=== PATIENT | male | born 1950 | race American Indian/Alaskan Native ===

== ENCOUNTER 2019-05-12 13:34 | Day surgery (SDC) | payer OTHER ==
--- NOTE | 2019-05-12 13:20 | Anesthesia Day of Surgery ---
Anesthesia Day of Surgery - Day of Surgery Patient Examined: Yes Patient H&P Reviewed: Yes Patient is NPO: Yes
--- NOTE | 2019-05-12 13:20 | Anesthesia Consultation ---
Anesthesia Consult and Med Hx Date of service: 05/12/19 - Airway Anesthetic Teeth Evaluation: Good ROM Head & Neck: Adequate Mental/Hyoid Distance: Adequate Mallampati Class: Class II Intubation Access Assessment: Good - Pulmonary Exam CTA: Yes - Cardiac Exam Cardiac Exam: RRR - Pre-Operative Health Status ASA Pre-Surgery Classification: ASA2 - Pulmonary Hx Smoking: Yes ("puffs, does not inhale") - Cardiovascular System Hx Hypertension: Yes (Only with pain but medicated daily) - Central Nervous System Hx Psychiatric Problems: Yes (PTSD) - Other Systems Hx Cancer: No
[~2019-05-12 13:34] MED LIST: DECADRON ONE; DILAUDID IV PRN; LACTATED RINGERS 1,000 ML ONE; LEVAQUIN 500MG/100ML 500 MG/100 ML BAG IV NR; ROBINUL ONE; TORADOL ONE; WATER FOR IRRIG STERILE IR ONE; ZOFRAN IV PRN; ZOFRAN ONE
[2019-05-12 13:52] LABS: BUN/Creatinine Ratio 17; Blood Urea Nitrogen 15 mg/dL (9-20); Calcium 9.6 mg/dL (8.4-10.2); Hemolysis Index 13
[2019-05-12] MEDS ORDERED: DIPRIVAN 10 MG/ML IV ONE (14:11)
[2019-05-12] MEDS ORDERED: SUBLIMAZE ONE (14:11)
[2019-05-12] MEDS ORDERED: WATER FOR IRRIG STERILE IR ONE (14:14)
--- NOTE | 2019-05-12 14:27 | Post Operative Note ---
Date of procedure: 05/12/19 Pre-op diagnosis: hematuria +fish Post-op diagnosis: same Findings: see note Procedure: cysto rpgs bx Anesthesia: GETA Surgeon: SHANI WILSON Estimated blood loss: minimal Pathology: list (bladder) Specimen disposition: to lab Condition: stable Disposition: PACU
--- NOTE | 2019-05-12 14:28 | Discharge Summary ---
Short Stay Discharge Plan Activity: other (no straining ) Weight Bearing Status: Full Weight Bearing Diet: low fat, low cholesterol, low salt Special Instructions: other (inc fluids ) Durable Medical Equipment Needed Upon Discharge: other (catheter ) Follow up with: [facility] [Primary Care Provider] - 7 Days SHANI WILSON MD [Staff Physician] - 7 Days
[2019-05-12] MEDS ORDERED: LACTATED RINGERS 1,000 ML IV SCH (15:00)
--- NOTE | 2019-05-12 15:12 | Operative Report ---
PREOPERATIVE DIAGNOSIS: Hematuria, positive FISH. POSTOPERATIVE DIAGNOSIS: Mild prostatic enlargement, no acute active bleeding, no distinct lesion. PROCEDURE: Cystoscopy, biopsy, retrograde. SURGEON: Ethan Wolfe MD ANESTHESIA: General. FINDINGS: This is a gentleman with some hematuria, positive FISH. His urine has been clear now, presents for cystoscopy. DESCRIPTION OF PROCEDURE: The patient was brought to the operating room and placed on the operating table. Following induction of anesthesia, he was placed in lithotomy position, prepped and draped in usual sterile fashion. Examination was unremarkable. Cystoscopy showed no strictures. Bladder was entered. Mild bilobar hypertrophy. No bladder lesions. Random biopsies were taken. Retrograde showed good filling, good drainage with few air bubbles left upper ureter. The patient tolerated the procedure well. Excellent drainage bilaterally. No filling defects persistent on fluoroscopy. The patient tolerated the procedure well and brought to recovery in stable condition. JOB# [id number] GIULIANO/TELLO
[2019-05-12 15:36] VITALS: BP 110/78
--- NOTE | 2019-05-12 16:05 | Fluoroscopy Report ---
FLUOROSCOPY RETROGRADE UROGRAPHY HISTORY: Hematuria. FINDINGS: Fluoroscopy was provided by radiology during retrograde urography by the urologist. 5 fluor oscopic images of the abdomen are presented. 38 seconds of fluoroscopy time was utilized. The images demonstrate normal-appearing bilateral retrograde pyelograms. No evidence for filling defect or abnor mal dilatation. Please correlate with the procedural report as needed. Signer Name: Amando Cheung Jr, MD Signed: 05/12/2019 4:00 PM Workstation Name: [id number]
--- NOTE | 2019-05-13 11:56 | Post Anesthesia Evaluation ---
- Post Anesthesia Evaluation Patient Participated: Yes Airway Patent: Yes Stable Respiratory Function: Yes Nausea/Vomiting: No Temp > 96.8F: Yes Pain Manageable: Yes Adequeate Hydration: Yes Anesthesia Complications: No Block Receding Appropriately: Not Applicable Patient on Ventilator: No
== END 2019-05-12 16:30 | disposition home or self-care (01) ==
LOC: OR 13:34
PROVIDERS: ATTEND Urology
DX: N30.81 Other cystitis with hematuria (principal); N40.0 Benign prostatic hyperplasia without lower urinary tract symptoms; N32.89 Other specified disorders of bladder; H40.9 Unspecified glaucoma; I10 Essential (primary) hypertension; N42.89 Other specified disorders of prostate; F17.210 Nicotine dependence, cigarettes, uncomplicated; Z88.8 Allergy status to other drugs, medicaments and biological substances; Z88.0 Allergy status to penicillin; Z79.899 Other long term (current) drug therapy; Z98.890 Other specified postprocedural states
CPT/HCPCS: 36415; 74420; 80048; 88305; A4217; C1758; C1769; J1100; J1885; J1956; J2405; J2704; J3010; J7120; Q9967